=== PATIENT | male | born 1955 | race Caucasian/White ===

== ENCOUNTER 2016-10-26 10:00 | Inpatient (IN) ==
[2016-10-26] MEDS ORDERED: NS 1,000 ML ONE ×3 (10:30→16:38)
[2016-10-26 10:33] LABS: MANUAL DIFF NEEDED? NO
[2016-10-26] MEDS ORDERED: NS 1,000 ML IV ONE ×3 (10:33→11:41)
[2016-10-26 10:36] LABS: BASO% 0.3 % (0.0-0.8); EOS# 0.22 X1000 (0.0-0.7); EOS% 2.3 % (0.0-10.0); HEMATOCRIT 38.4 % (42.0-52.0); HEMOGLOBIN 13.8 g/dL (14.0-18.0); IMM GRAN# 0.05 X1000 (0.0-0.04); IMM GRAN% 0.5 % (0.0-0.5); LYMPH# 1.68 X1000 (1.2-3.4); LYMPH% 17.6 % (20.5-51.1); MCHC 35.9 g/dL (33-37); MCV 91.9 FL (81-99); MONO# 1.33 X1000 (0.11-0.59); MONO% 13.9 % (1.7-9.3); MPV 8.9 FL (7.4-10.4); NEUT% 65.4 % (42.2-75.2); PLT 289 X1000 (130-400); RBC 4.18 XMIL (4.7-6.1)
[2016-10-26 11:10] LABS: SODIUM 120 mmol/L (136-145)
[2016-10-26 11:11] LABS: AGAP 17; ALBUMIN 3.9 g/dL (3.5-5.0); ALKALINE PHOSPHATASE 87 U/L (32-122); AMYLASE 77 U/L (20-200); BUN 14 mg/dL (8-22); CHLORIDE 82 mmol/L (98-107); COSMO 245; GOT 16 U/L (10-34); GPT 9 U/L (10-44); LIPASE 45 U/L (13-60); POTASSIUM 3.7 mmol/L (3.5-5.1); TCO2 21 mmol/L (25-35); TOTAL PROTEIN 6.6 g/dL (6.3-8.3)
[2016-10-26] MEDS ORDERED: TYLENOL PO PRN ×4 (11:41→18:03)
--- NOTE | 2016-10-26 12:08 | Diag Imaging Result Doc PS360 ---
EXAM: FLAT/UPRIGHT ABD/1 VIEW CHEST HISTORY: abd pain TECHNIQUE: Two view abdomen. Single view chest. COMPARISON: 06/19/2016 FINDINGS: Supine and erect views of the abdomen demonstrate numerous markedly dilated small bowel loops. There is linear and bubbly gas appearance within the right abdomen and pneumatosis is not excluded. Further evaluation CT scan of the abdomen and pelvis is suggested. Findings are suspicious for mechanical small bowel obstruction or possibly adynamic ileus. There is a paucity of rectal gas. There is no free air beneath the hemidiaphragm. Single view of the chest reveals cardiomegaly. No acute infiltrates are identified. There are postsurgical changes left shoulder. IMPRESSION: Markedly dilated small bowel loops suspicious for mechanical obstruction or possibly adynamic ileus. Cannot exclude pneumatosis intestinalis right abdomen. Recommend CT scan of the abdomen and pelvis. These findings were discussed with Dr. Davalos. Electronically signed by Junie Chan 10/26/2016 12:06 PM
[2016-10-26] MEDS ORDERED: ZOFRAN ONE (13:07)
[2016-10-26] MEDS ORDERED: ZOFRAN IV ONE (13:10)
--- NOTE | 2016-10-26 15:33 | Diag Imaging Result Doc PS360 ---
EXAM: ABDOMEN/PELVIS W/CONTRAST HISTORY: sbo, pneumatosis TECHNIQUE: Images of the abdomen and pelvis were performed with IV and oral contrast. COMPARISON: None. FINDINGS: The lung bases reveal increased attenuation right lower lobe consistent with atelectasis or consolidation. There is a small to moderate hiatal hernia. There are multiple dilated small bowel loops throughout the abdomen measuring up to 4.7 cm in diameter. The small bowel loops are fluid-filled with multiple gas bubbles but no definitive pneumatosis. The small bowel loops within the upper pelvis appear somewhat decompressed compared to the remaining small bowel loops within the abdomen, however, a definitive transition zone is not appreciated. The colon is fluid filled and mildly dilated proximally. Cecum measures 8 cm. There is a small amount of free fluid within the right lower quadrant adjacent to bowel loops. There is diverticulosis. There is no evidence for diverticulitis. The appendix appears normal. The sigmoid colon is decompressed. The solid visceral organs are otherwise unremarkable with exception of a small right renal cyst. No portal venous gas is appreciated. The urinary bladder is distended. There is no hydronephrosis. The pancreas, spleen, and adrenal glands are unremarkable. There is a nonspecific sclerotic lesion within the right ilium and lumbar spondylosis. Surgical consultation is recommended. These findings were discussed with Dr. Davalos. IMPRESSION: 1.Marked small bowel dilatation measuring up to 4.7 cm. The degree of small bowel distention is suspicious for mechanical small bowel obstruction although adynamic ileus is not completely excluded. Somewhat decompressed small bowel loops are noted within the upper pelvis but no definitive transition point. The sigmoid colon appears decompressed and the remainder of the colon appears mildly dilated. 2.Small amount of interloop fluid right lower quadrant. 3.No definitive pneumatosis although there is fecalization of the small bowel and numerous scattered air foci throughout the colon. 4.Right lower lobe atelectasis or consolidation. 5.Hiatal hernia. 6.Normal appendix. 7.Distended urinary bladder. Electronically signed by Junie Chan 10/26/2016 3:30 PM
[2016-10-26] MEDS ORDERED: MORPHINE IV PRN (15:37)
[2016-10-26 15:51] LABS: URINE CULTURE PL NEEDED? NO
[2016-10-26] MEDS ORDERED: VASOTEC IV ONE (15:53)
[2016-10-26] MEDS ORDERED: VASOTEC ONE (15:54)
[2016-10-26 15:59] LABS: BILIRUBIN URINE NEGATIVE (NEGATIVE); BLOOD URINE NEGATIVE (NEGATIVE); CLARITY CLEAR (CLEAR); COLOR YELLOW; GLUCOSE URINE NEGATIVE (NEGATIVE); LEUKOCYTES URINE NEGATIVE (NEGATIVE); NITRITE URINE NEGATIVE (NEGATIVE); PROTEIN URINE TRACE mg/dL (NEGATIVE); UROBILINOGEN URINE NORMAL
[2016-10-26] MEDS ORDERED: MORPHINE ONE (16:16)
[2016-10-26 16:17] LABS: URINE SOURCE CLEAN CATCH
[2016-10-26 16:19] LABS: URINE EPITHELIAL CELLS <10 /HPF (<10); URINE RBC <10 /HPF (<10); URINE WBC <10 /HPF (<10)
[2016-10-26] MEDS ORDERED: SODIUM CHLORIDE 0.9% INJ ONE (16:37)
[2016-10-26] MEDS ORDERED: PROTONIX IV ONE (16:37)
--- NOTE | 2016-10-26 16:40 | HISTORY AND PHYSICAL ---
PRIMARY CARE PHYSICIAN: Unknown. CHIEF COMPLAINT: Periumbilical abdominal pain that began this a.m. Weakness for the past 4 days. Constipation for 4-5 days and nausea, vomiting x1. HISTORY OF PRESENTING ILLNESS: This is a 61-year-old male who presents to [facility] ER with complaints of periumbilical abdominal pain that began this a.m. States he has had increased weakness and constipation for 4-5 days prior to arriving and nausea, vomiting today. Workup in the ER showed a blood pressure on arrival of 80/43. Laboratory data showed a sodium of 120, chloride 82. X-ray of the abdomen showed a markedly dilated small-bowel loop suspicious for mechanical obstruction, could not be exclude a pneumatosis and recommended a CT scan. We obtained a CT of the abdomen and pelvis that showed marked small- bowel dilation suspicious for mechanical small-bowel obstruction although adynamic ileus was not completely excluded. Also had no definite pneumatosis. He had a right lower lobe atelectasis or consolidation. The ER physician spoke with on-call surgeon, Dr. Moncada who requested the patient be transferred to [facility] to the hospitalist services and consult him for further surgical intervention. So he will be admitted to the intensive care unit at [facility] for further evaluation and treatment. PAST MEDICAL HISTORY: Hypertension, COPD, GERD, a subarachnoid hemorrhage, CVA , seizures, bipolar and PTSD. PAST SURGICAL HISTORY: Tonsillectomy and a ruptured esophagus repair. FAMILY HISTORY: Noncontributory. SOCIAL HISTORY: Currently lives with family. He smokes 1 pack of cigarettes a day and has done so since he was 14 years old. Denies any alcohol or illicit drug use. ALLERGIES: He has no known drug allergies. HOME MEDICATIONS: We will obtain a current list but at this time he will be NPO. Will restart them once his obstruction has resolved and approved by the hospitalist at that time. LABORATORY DATA: Showed a white blood cell count of 9.55, a hemoglobin of 13.8 , hematocrit 38.4, platelets 289,000. Sodium of 120, potassium 3.7, chloride 82, CO2 21, BUN of 14 , creatinine 1.1, glucose 136, amylase 77, lipase 45, plasma lactate 2.5. X-ray of the abdomen showed markedly dilated small-bowel loop suspicious for mechanical obstruction or possibly an adynamic ileus. Cannot exclude pneumatosis intestinalis right abdomen. Recommended a CT of the abdomen and pelvis. CT of the abdomen and pelvis showed marked small-bowel dilation measuring up to 4.7 cm. The degree of small bowel distention is suspicious for mechanical small bowel obstruction although adynamic ileus is not completely excluded, somewhat decompressed small bowel loops are noted within the upper pelvis but no definite transition point. The sigmoid colon appears decompressed and the remainder of the colon appeared mildly dilated. Small amount of interloop fluid in the right lower quadrant. No definite pneumatosis although there is fecalization of the small bowel and numerous scattered air foci throughout the colon. A right lower lobe atelectasis or consolidation, hiatal hernia, normal appendix and a distended urinary bladder. REVIEW OF SYSTEMS: He denied any fever, chills, blurred vision, dizziness, chest pain, coughing, shortness of breath. He is positive for nausea, vomiting, constipation, periumbilical abdominal pain, weakness. Denied any burning or hurting with urination. PHYSICAL EXAMINATION: VITAL SIGNS: On arrival had a temperature of 98 degrees, pulse 57, respirations 20, blood pressure was 80/43. He was given 2 L boluses of normal saline now running at 125 mL an hour and his blood pressure currently is 164/107. GENERAL: This is a 61-year-old male who is lying in the bed, answers questions appropriately. HEENT: Normocephalic and atraumatic. Pupils are equal, round, reactive to light. Extraocular movements are intact. Oropharynx and nares are clear. NECK: Supple. LUNGS: Clear to auscultation bilaterally with equal lung expansion and chest wall movement. HEART: With regular rate and rhythm. No murmurs, rubs, or gallops. ABDOMEN: Soft, distended. Bowel sounds are present x4 quadrants. There is tenderness to palpation throughout entire abdomen. EXTREMITIES: No clubbing, cyanosis, or edema. NEUROLOGICAL: The cranial nerves 2-12 are grossly intact. ASSESSMENT: 1. A mechanical small-bowel obstruction. 2. Hyponatremia. 3. A right lower lobe pneumonia. 4. An initial presentation of hypotension but now with hypertension. PLAN: He is being admitted to the intensive care unit at [facility], [place], operated by [facility]. Placed on O2 per protocol. Telemetry. He will be NPO. Place on morphine 2 mg IV q.[address] on Levaquin 750 mg IV q.24, Zosyn 3.375 g IV Neuro checks q.4 hours. Consult surgery. Check a urine osmolality and urine sodium. Will check a CBC and a CMP in the a.m. Dictated by LASHAY Martinez for Yuriy Reagan MD cc: LASHAY Martinez MD pt examined, agree with above , developed upper GI bleed, placed NGT, started protonix gtt, contacted Dr Moncada and have also consulted Dr Swanson, we will continue to follow closely APENOT MTDD
[2016-10-26] MEDS ORDERED: PROTONIX 80 MG in NS 80 ML IV ONE (16:45)
--- NOTE | 2016-10-26 16:58 | Diag Imaging Result Doc PS360 ---
CHEST/ABD TUBE PLACEMENT - 10/26/2016 INDICATION: NG tube placement confirmation TECHNIQUE: COMPARISON: Earlier 10/26/2016 FINDINGS: There is a nasogastric tube with the tip in the stomach in good position. There is severe small bowel obstruction. IMPRESSION: Nasogastric tube tip in the stomach. Electronically signed by Rodrigo Bruno 10/26/2016 4:56 PM
[2016-10-26] MEDS: PROTONIX 80 MG in NS 80 ML IV ONE (17:00)
[2016-10-26] MEDS ORDERED: ZOSYN 3.375 GM/NS 3.375 GM/50 ML IVPB IV ONE (18:03)
[2016-10-26] MEDS ORDERED: LEVAQUIN 750 MG/D5W 750 MG/150 ML IVPB IV SCH (18:03)
[2016-10-26] MEDS ORDERED: ZOFRAN IV PRN (18:03)
[2016-10-26] MEDS: NS 1,000 ML IV ONE (18:28)
[2016-10-26] MEDS: MORPHINE IV PRN ×2 (18:45→22:48)
[2016-10-26] MEDS: DUONEB (A & A) INH SCH ×2 (19:12→23:28)
[2016-10-26] MEDS ORDERED: DUONEB (A & A) INH SCH (19:30)
[2016-10-26 20:45] LABS: HEMATOCRIT 37.2 % (42.0-52.0); HEMOGLOBIN 13.5 g/dL (14.0-18.0)
[2016-10-26] MEDS ORDERED: ATIVAN IV ONE (22:24)
[2016-10-27] MEDS: NS 1,000 ML IV ONE (01:59)
[2016-10-27] MEDS: NS 1,000 ML IV SCH ×3 (02:00→19:59)
[2016-10-27] MEDS: PROTONIX 80 MG in NS 80 ML IV ONE (02:00)
[2016-10-27] MEDS: PROTONIX 80 MG in NS 80 ML IV SCH ×3 (02:01→23:37)
[2016-10-27] MEDS: DUONEB (A & A) INH SCH ×6 (03:08→23:05)
[2016-10-27 05:01] LABS: MANUAL DIFF NEEDED? NO
[2016-10-27 05:03] LABS: BASO% 0.1 % (0.0-0.8); EOS# 0.12 X1000 (0.0-0.7); EOS% 1.3 % (0.0-10.0); HEMATOCRIT 36.2 % (42.0-52.0); HEMOGLOBIN 12.9 g/dL (14.0-18.0); LYMPH# 0.65 X1000 (1.2-3.4); MCH 33.2 PG (27-31); MCHC 35.6 g/dL (33-37); MCV 93.3 FL (81-99); MONO# 1.74 X1000 (0.11-0.59); MONO% 18.8 % (1.7-9.3); MPV 9.2 FL (7.4-10.4); NEUT% 72.8 % (42.2-75.2); PLT 281 X1000 (130-400); RBC 3.88 XMIL (4.7-6.1)
[2016-10-27 05:42] LABS: AGAP 11; ALBUMIN 3.1 g/dL (3.5-5.0); ALKALINE PHOSPHATASE 68 U/L (32-122); BUN 7 mg/dL (8-22); CALCIUM 8.2 mg/dL (8.8-10.2); CHLORIDE 96 mmol/L (98-107); COSMO 256; GOT 15 U/L (10-34); GPT 9 U/L (10-44); POTASSIUM 3.9 mmol/L (3.5-5.1); SODIUM 129 mmol/L (136-145); TCO2 22 mmol/L (25-35); TOTAL BILIRUBIN 0.47 mg/dL (0.20-1.00); TOTAL PROTEIN 5.3 g/dL (6.3-8.3)
[2016-10-27] MEDS: PRINIVIL PO SCH ×2 (08:51→09:32)
[2016-10-27] MEDS: ZOSYN 3.375 GM/NS 3.375 GM/50 ML IVPB IV SCH ×3 (08:51→19:59)
--- NOTE | 2016-10-27 09:57 | PROGRESS NOTE ---
DATE: 10/27/2016 SUBJECTIVE: Patient has not had any more episodes of vomiting with coffee- ground material. Not feeling dizzy. Now mild intermittent abdominal pain. OBJECTIVE: Vital Signs: Temperature 99.6 degrees, heart rate 94, respiratory rate 12, blood pressure 158/104, O2 saturation 94% on room air. This is a 61-year-old male, lying in bed, in no acute distress. HEENT: Head is normocephalic, atraumatic. Anicteric sclerae and pale conjunctivae. Mucous membranes moist. Pupils equal, round, reactive to light and accommodation. Neck: Supple. No JVD. No carotid bruits. No lymphadenopathy. No thyromegaly. Cardiovascular: S1, S2 heard. No murmurs, gallops, or rubs. Regular rate and rhythm. Respiratory: Clear bilaterally to auscultation. No work of breathing or using accessory muscles. Abdomen: Soft, distended. Bowel sounds hyperactive in both 4 quadrants. Also, generalized tenderness to palpation throughout the entire abdomen. Extremities: No clubbing, cyanosis, or edema. Peripheral pulses present in both legs. Neurological: Patient alert oriented x3. Moves 4 extremities. Cranial nerves 2-12 grossly normal. Very hard of hearing. LABORATORY DATA: White cell count 12.9, hematocrit 36.2 with platelets 281, 000. Sodium 129, potassium 3.9, chloride 96, bicarbonate 22, BUN 0.6, creatinine 0.6 and BUN 7. ASSESSMENT/PLAN: 1. Mechanical small-bowel obstruction. Dr. Moncada from General Surgery has been consulted and he is following this patient. NG tube has been placed. We will follow recommendations from him. 2. Hyponatremia. This condition is getting better. Sodium 120 at admission and 126 today. We will continue with IV fluids. 3. Right lower lobe pneumonia. Considering that she had a small-bowel obstruction and pneumonia, would prefer to change antibiotics and use Zosyn. 4. Hypertension. Lisinopril will be restarted. 5. Gastrointestinal bleeding. Dr. Reddy has been consulted and hemoglobin , so far, is stable. We will follow recommendations from him. cc: Souleymane Jasso MD [facility]
[2016-10-27] MEDS: APRESOLINE IV PRN (11:50)
[2016-10-27] MEDS: MORPHINE IV PRN ×3 (12:29→20:41)
--- NOTE | 2016-10-27 13:24 | CONSULTATION ---
DATE OF CONSULTATION: 10/27/2016 CHIEF COMPLAINT: Obstipation. HISTORY: This is a 61-year-old white male who reports no bowel movement in 4 months. He says he has been evaluated for this by Dr. Juarez, but they have been unable to find the source or the reason. He says he has continued to eat satisfactorily, but his bowels simply do not move. He was admitted and CAT scan showed dilated small bowel, stool within the colon. PAST MEDICAL HISTORY: Pertinent for hypertension, COPD, gastroesophageal reflux, history of subarachnoid hemorrhage, apparently a seizure disorder, and bipolar disorder. PAST SURGICAL HISTORY: Tonsillectomy. FAMILY HISTORY: Noncontributory. SOCIAL HISTORY: He does smoke a pack of cigarettes per day. Says he is not drunk any alcohol in 7 months. ALLERGIES: He has no known drug allergies. HOME MEDICATIONS: Are not listed, but I believe he takes Vasotec 2.5 mg and Ativan. PHYSICAL EXAMINATION: Vital Signs: His temperature is 99.6 degrees, heart rate 94, blood pressure 158/100. General: He is awake and alert. Says he feels much better today than he did yesterday. Neck: He has no cervical adenopathy. Lungs: Bilateral breath sounds. Heart: Regular rate and rhythm. Abdomen: Soft and nontender. No masses are palpated. Bowel sounds are present. Extremities: Femoral pulses are present. Dorsalis pedis and posterior tibial pulses are normal. No peripheral edema. Neurologic: He is awake and alert. LABORATORIES: White count is 9300, hemoglobin 12.9. Sodium 129 and chloride 96. ASSESSMENT: This man has apparently a paralytic ileus for uncertain reasons. He certainly has stool in his colon, which could contribute to his obstipation. There is no urgent indication for operation. I do think he should be evaluated more fully with evacuation of his colon and possible colonoscopy. We will continue the NG suction. cc: Boris Moncada MD
[2016-10-27] MEDS ORDERED: TESSALON PO PRN (20:21)
[2016-10-27] MEDS ORDERED: MELATONIN PO PRN (22:42)
[2016-10-27] MEDS ORDERED: BENADRYL IV ONE (22:49)
[2016-10-28] MEDS: ZOSYN 3.375 GM/NS 3.375 GM/50 ML IVPB IV SCH ×4 (01:16→21:48)
[2016-10-28] MEDS: MORPHINE IV PRN ×2 (03:07→10:09)
[2016-10-28] MEDS: DUONEB (A & A) INH SCH ×6 (03:15→23:09)
[2016-10-28] MEDS: NS 1,000 ML IV SCH ×3 (04:22→17:15)
[2016-10-28 05:37] LABS: MANUAL DIFF NEEDED? NO
[2016-10-28 05:44] LABS: BASO% 0.2 % (0.0-0.8); EOS# 0.04 X1000 (0.0-0.7); EOS% 0.5 % (0.0-10.0); HEMATOCRIT 36.9 % (42.0-52.0); IMM GRAN# 0.02 X1000 (0.0-0.04); IMM GRAN% 0.2 % (0.0-0.5); LYMPH# 1.19 X1000 (1.2-3.4); LYMPH% 14.7 % (20.5-51.1); MCH 33.1 PG (27-31); MCHC 35.2 g/dL (33-37); MCV 93.9 FL (81-99); MONO# 1.34 X1000 (0.11-0.59); MONO% 16.5 % (1.7-9.3); MPV 9.3 FL (7.4-10.4); NEUT% 67.9 % (42.2-75.2); PLT 268 X1000 (130-400); RBC 3.93 XMIL (4.7-6.1)
[2016-10-28 06:02] LABS: AGAP 15; BUN 4 mg/dL (8-22); CHLORIDE 97 mmol/L (98-107); COSMO 263; SODIUM 132 mmol/L (136-145); TCO2 20 mmol/L (25-35)
[2016-10-28] MEDS: APRESOLINE IV PRN (06:07)
[2016-10-28] MEDS: PROTONIX 80 MG in NS 80 ML IV SCH ×2 (08:58→17:14)
[2016-10-28] MEDS ORDERED: SEROQUEL PO SCH (09:00)
[2016-10-28] MEDS ORDERED: DEPAKOTE ER PO SCH (09:00)
[2016-10-28] MEDS: METAMUCIL PO SCH ×2 (10:03)
[2016-10-28] MEDS: SINGULAIR PO SCH (10:03)
[2016-10-28] MEDS: PRINZIDE 10/12.5MG PO SCH ×2 (10:03→21:50)
[2016-10-28] MEDS: NORVASC PO SCH ×2 (10:03→21:51)
[2016-10-28] MEDS: NEURONTIN PO SCH ×3 (10:03→17:14)
[2016-10-28] MEDS: MIRALAX PO SCH (10:03)
--- NOTE | 2016-10-28 11:32 | PROGRESS NOTE ---
DATE: 10/28/2016 SUBJECTIVE: Patient reports no more episodes of coffee-grounds vomiting. No blood in the stools. No abdominal pain noted today. OBJECTIVE: Vital Signs: Temperature 99.6 degrees, heart rate 75, respiratory rate 18, blood pressure 163/97, O2 saturation 96% on room air. General Examination: This is a chronically ill- looking and also looking older than his age, 61-year-old, male, lying in bed, in no acute distress. HEENT: Head is normocephalic and atraumatic. Anicteric sclerae and pale conjunctivae. Mucous membranes moist. Pupils equal, round, and reactive to light and accommodation. Neck: Supple. No JVD noted. No carotid bruits. No lymphadenopathy. No thyromegaly. Cardiovascular Examination: S1 and S2 heard. No murmurs, gallops, or rubs. Regular rate and rhythm. Respiratory Examination: Clear bilaterally to auscultation. No work of breathing or using accessory muscles. Abdomen: Soft, nontender to palpation. Bowel sounds present. No organomegaly. Extremities: No clubbing, cyanosis, or edema. Peripheral pulses present in both legs. Abdomen is distended, same in comparing with yesterday. Tympanic. No signs of peritoneal irritation. Bowel sounds hyperactive in 4 quadrants. Mild tenderness to palpation around the entire abdomen. Extremities: No clubbing, cyanosis, or edema. Peripheral pulses present in both legs. Neurological Examination: Patient is a little hard of hearing. Moves 4 extremities. Cranial nerves 2 though 12 grossly normal. Laboratory Data: White cell count is 8.11, hemoglobin 13, hematocrit 36.9, and platelets 268,000. Sodium 132, potassium 4, chloride 97, bicarb 20, BUN 4, creatinine 0.6, glucose 128. ASSESSMENT AND PLAN: 1. Possible mechanical small-bowel obstruction. We have consulted Dr. Moncada from general surgery who thinks this patient had apparently a paralytic ileus for uncertain reasons. There is definitely no surgical approach warranted at this time. Also, Dr. Reddy has been consulted and he recommends laxatives. 2. Gastrointestinal bleeding. Regarding this possible vomiting coffee-grounds material, hemoglobin has been stable so far until now. Dr. Reddy is planning to continue with laxatives and apparently, there are no plans for doing a colonoscopy yet. There is no note in the computer. 3. Hyponatremia. That condition is much better. The patient is responding and today is 132, almost back to normal. We will continue with intravenous fluids. 4. Hypertension. Patient's home medication has been restarted. 5. Right lower lobe pneumonia. Patient is on Zosyn. We will continue with the same management. Patient was admitted to the hospital for a small bowel obstruction. CT also shows right lower lobe pneumonia. By now, he is being treated for pneumonia. Surgery is not planning to do any surgical approach and GI is providing medications for constipation. I am not quite sure if they are planning to do a colonoscopy but by now the patient is stable. The patient can be sent to the floor today. We will follow recommendations from both subspecialists and we will let him go home when he is cleared by them. cc: Souleymane Jasso MD
--- NOTE | 2016-10-28 12:14 | Diag Imaging Result Doc PS360 ---
EXAM: FLAT/UPRIGHT ABD/1 VIEW CHEST HISTORY: abd distention TECHNIQUE: Flat and upright with chest, four views COMPARISON: 10/26/2016 FINDINGS: The lungs are well expanded and clear. No cardiomegaly. A nasogastric tube overlies the esophagus and upper stomach. No free air beneath the diaphragm. There is stool throughout the colon. The small bowel loops are less distended than on the prior study. IMPRESSION: Interval decrease in the small bowel distention, but constipation patient persists. Electronically signed by Shabbir Fair 10/28/2016 12:12 PM
[2016-10-28] MEDS: SEROQUEL PO SCH ×2 (13:59→17:13)
[2016-10-28] MEDS: DEPAKOTE ER PO SCH (21:50)
[2016-10-28] MEDS: AMBIEN PO SCH (21:50)
[2016-10-28] MEDS: DESYREL PO SCH (21:50)
[2016-10-29] MEDS: NS 1,000 ML IV SCH ×4 (00:57→23:16)
[2016-10-29] MEDS: ZOSYN 3.375 GM/NS 3.375 GM/50 ML IVPB IV SCH ×4 (02:59→21:21)
[2016-10-29] MEDS: DUONEB (A & A) INH SCH ×6 (03:33→23:07)
[2016-10-29] MEDS: PROTONIX 80 MG in NS 80 ML IV SCH ×2 (03:56→13:52)
[2016-10-29] MEDS: MIRALAX PO SCH (09:22)
[2016-10-29] MEDS: SEROQUEL PO SCH ×3 (09:22→17:47)
[2016-10-29] MEDS: METAMUCIL PO SCH ×2 (09:22)
[2016-10-29] MEDS: SINGULAIR PO SCH (09:23)
[2016-10-29] MEDS: NORVASC PO SCH ×2 (09:23→21:33)
[2016-10-29] MEDS: NEURONTIN PO SCH ×3 (09:23→17:48)
[2016-10-29] MEDS: PRINZIDE 10/12.5MG PO SCH ×2 (09:23→21:21)
--- NOTE | 2016-10-29 09:59 | PROGRESS NOTE ---
DATE: 10/29/2016 SUBJECTIVE: Mr. Hobson is now hospital day 4. He is hearing impaired. He was admitted to our hospitalist with possible small bowel obstruction with dilatation of the small bowel. NG tube has been placed. Dr. Moncada saw him on 10/27/2016, and it was felt that he had an ileus. He has been treated conservatively. He has no NG tube at this time. He has had some flatus and a small bowel movement with improvement in his flat and upright abdominal films. There is an issue with constipation and GI medicine has seen the patient and has prescribes laxatives. There may be plans for colonoscopy. He has been placed on a clear liquid diet. cc: Donna Butler MD
--- NOTE | 2016-10-29 12:56 | CONSULTATION ---
DATE OF CONSULTATION: 10/27/2016 CHIEF COMPLAINT: Nausea, vomiting, and periumbilical abdominal pain. HISTORY OF PRESENT ILLNESS: This 61-year-old gentleman, with periumbilical pain for the last 4-5 days, increasing constipation associated with nausea and vomiting, came in with hypotension and hyponatremia. CT scan: Small bowel dilation and stool throughout the colon. The patient was placed on NG tube and surgical consult was asked, and I was asked to see the patient. PAST MEDICAL HISTORY: Hypertension, COPD, GERD, subarachnoid hemorrhage, CVA, seizures, bipolar, and PATS. PAST SURGICAL HISTORY: Tonsillectomy and ruptured esophagus repair. FAMILY HISTORY: Noncontributory. SOCIAL HISTORY: He lives with his . He smokes a pack of cigarettes a day. He does not drink or use any drugs. ALLERGIES: None. HOME MEDICATIONS: He is not sure about his medicines. We are waiting for the family to bring the medication. REVIEW OF SYSTEMS: He denies any fever or chills or any hematemesis, melena, hematochezia. No other symptoms other than feeling weak. PHYSICAL EXAMINATION: Physical examination reveals this pleasant gentleman alert, appears to be gagging when I saw him. He is afebrile, temperature of 98 degrees. Pulse 70, respirations 20, blood pressure by the time I have seen is 110/80. General: A 61-year-old gentleman laying in bed, answers questions. Uncomfortable with the NG tube. HEENT: No scleral icterus. Mild conjunctival pallor present. Neck is supple. Trachea midline. Heart normal. 1st and 3rd sounds. Lungs are clear. Abdomen distended. No rebound or rigidity. Tympanic bowel sounds are present. Extremities: No cyanosis or clubbing. Neurologically intact. LABORATORY DATA: White count 9000, hematocrit 38.2. Sodium is low at 120. Chloride is also low at 82. CO2 of 21. Creatinine 1.1. CT scan findings as above. Marked dilation of the bowel and fecalization of the small bowel as well. ASSESSMENT AND PLAN: 1. Severe constipation and rule out mechanical small bowel obstruction. 2. Hyponatremia secondary to dehydration and nausea and vomiting. 3. Hypotension secondary to dehydration. 4. Chronic constipation. RECOMMENDATIONS: We will continue NG suction abdominal distention is better. We will try some MiraLAX and try to get his bowels moving. If that does not work, we will plan on upper GI endoscopy and possibly flexible sigmoidoscopy as well. cc: Morales Reddy MD
--- NOTE | 2016-10-29 12:57 | CONSULTATION ---
DATE OF CONSULTATION: 10/28/2016 SUBJECTIVE: The patient is looking better. He had a total of about 1200 mL aspirated in NG. The patient is tolerating clear liquids and has tube in clamp from yesterday No episodes of any vomiting coffee grounds or otherwise. OBJECTIVE: Temperature of 99 degrees, heart rate 75, respirations 18, blood pressure 160/90, O2 saturation 96% on room air. General: Resting in bed in no acute distress. HEENT: Mild conjunctival present. Pallor present. Mucosa is moist now. The heart and lungs are normal. Abdomen is slightly less distended but still tympanitic. Bowel sounds are present and hyperactive. Extremities unremarkable. No edema or clubbing. Neurologically intact. LABORATORY DATA: H and H have dropped slightly due to rehydration probably. Hematocrit 36.9, sodium up to 132, potassium up to 4. Creatinine down to 0.6. IMPRESSION AND PLAN: 1. Dilation of the small bowel and chronic constipation, mechanical versus ileus. Sodium has improved. He is actually looking better and tolerating liquids. I will try to prep him if he tolerates it. If not, we will have to do an enema and do an upper and a flexible sigmoidoscopy. 2. Gastrointestinal bleeding. No evidence of it now. 3. Hypernatremia. 4. Questionable right lower lobe pneumonia. I will try to get him cleaned out, but it appears that it may be risky with massive dilation of small bowel. We will decide tomorrow. -5 cc: Morales Reddy MD
--- NOTE | 2016-10-29 12:57 | CONSULTATION ---
DATE OF CONSULTATION: 10/29/2016 SUBJECTIVE: Feeling better. He had a small bowel movement. Tolerating liquids. No further nausea and vomiting. OBJECTIVE: Vital signs are noted and stable. HEENT: No scleral icterus. No conjunctival pallor. Neck supple. Trachea midline. Heart: Normal first and second heart sounds. Lungs are clear. Abdomen: Nontender. Still distended and tympanitic. Bowel sounds are present and hyperactive. Extremities unremarkable. LABORATORY DATA: Normal. IMPRESSION: 1. Ileus versus mechanical small bowel obstruction. We will possibly do upper gastrointestinal endoscopy and even enteroscopy and suction some of this gaseous distention. 2. Chronic constipation. I do not think we will be able to get him prepped from upper; we will try enemas and do at least flexible sigmoidoscopy and see if they dislodge any impaction. 3. Hypernatremia, corrected. 4. Gastrointestinal bleed, not active. 5. Hypertension being corrected. We will see him tomorrow with procedure. -5 cc: Morales Reddy MD
--- NOTE | 2016-10-29 13:37 | PROGRESS NOTE ---
DATE: 10/29/2016 SUBJECTIVE: The patient was seen and examined. He wants to eat. He stated he is hungry. No bowel movement. No acute events reported by the overnight staff. OBJECTIVE: Vital Signs: Blood pressure 131/104, pulse of 84, respirations 20, temperature 97.7 degrees, saturation of 96% on room air. General Appearance: Obese, white male, deaf, in no acute distress. HEENT: Anicteric. Clear conjunctivae. Neck: Supple. No JVD. No bruit. Cardiovascular: S1, S2. Normal rate and rhythm. No murmurs, rubs, or gallops. Pulmonary: Clear to auscultation bilaterally. GI: Soft, nontender, nondistended. Normoactive bowel sounds. Musculoskeletal: No clubbing, cyanosis, or edema. LABORATORY: White count 8.11, hemoglobin 13.0, hematocrit of 36.9, platelets of 268,000. Chemistry: Sodium 132, potassium of 9.7, chloride 20, BUN of 4, creatinine 0.6, glucose 128. Liver function tests are within normal limits. ASSESSMENT AND PLAN: This is a 61-year-old white male admitted to the hospital for shortness of breath and hyponatremia. 1. Shortness of breath. It is improving. Continue nebulizer treatments. More probable viral URI. 2. Hyponatremia. Probably secondary to his diuretics. The patient is on hydrochlorothiazide. Since his sodium function is improving we will not stop his hydrochlorothiazide but it may be something that we need to look into further if he continues to have hyponatremia. 3. Severe constipation. The patient has bowel sounds. No nausea. No vomiting. I see no reason to suspect that the patient has a mechanical small bowel obstruction. His abdominal x-ray showed just decreasing small bowel distention and constipation still persists. 4. Questionable upper gastrointestinal bleed. The patient attributes it to his nosebleed and his swallow. GI is planning to do the endoscopy tomorrow. We will continue to watch the patient. Hemoglobin and hematocrit have been stable. 5. Deep vein thrombosis prophylaxis. SCD for now, concern for possible GI bleed. 6. Code status. The patient is a full code. 7. Diet. We will start the patient on soft diet today and NPO after midnight since the patient only has an EGD tomorrow.
[2016-10-29] MEDS: AMBIEN PO SCH (21:20)
[2016-10-29] MEDS: DEPAKOTE ER PO SCH (21:20)
[2016-10-29] MEDS: DESYREL PO SCH (21:21)
[2016-10-30] MEDS: ZOSYN 3.375 GM/NS 3.375 GM/50 ML IVPB IV SCH ×4 (02:28→20:45)
[2016-10-30] MEDS: NS 1,000 ML IV SCH ×2 (03:04→17:26)
[2016-10-30] MEDS: MORPHINE IV PRN (03:13)
[2016-10-30] MEDS: DUONEB (A & A) INH SCH ×6 (03:41→22:51)
[2016-10-30] MEDS ORDERED: PREDNISONE PO ONE (09:58)
[2016-10-30] MEDS: SEROQUEL PO SCH ×3 (10:07→17:26)
[2016-10-30] MEDS: NORVASC PO SCH ×2 (10:07→21:17)
[2016-10-30] MEDS: SINGULAIR PO SCH (10:07)
[2016-10-30] MEDS: LOPRESSOR PO SCH ×2 (10:07→21:17)
[2016-10-30] MEDS: PRINZIDE 10/12.5MG PO SCH ×2 (10:08→21:28)
[2016-10-30] MEDS: MIRALAX PO SCH (10:08)
[2016-10-30] MEDS: METAMUCIL PO SCH ×2 (10:08)
[2016-10-30] MEDS: NEURONTIN PO SCH ×3 (10:08→17:26)
--- NOTE | 2016-10-30 10:31 | PROGRESS NOTE ---
DATE: 10/30/2016 SUBJECTIVE: The patient is doing well, pleasant. Did not have any fever or chills. He is anticipating the EGD and flexible sigmoidoscopy today. OBJECTIVE: Vital signs: Blood pressure 182/98, pulse of 74, respiration 18, temperature 97.8 degrees, saturation of 98% on room air. General appearance: Well-developed, well-nourished white male, in no acute distress. HEENT: Anicteric. Clear conjunctivae. Neck: Supple. No JVD. No bruit. Cardiovascular: S1, S2. Normal rate and rhythm. No murmurs, rubs, or gallops. Pulmonary: Wheezes bilaterally. GI: Soft, nontender, nondistended. Normoactive bowel sounds. Musculoskeletal: No clubbing, cyanosis, or edema. LABORATORY: None was ordered for today. We will order for tomorrow. ASSESSMENT AND PLAN: This is a 61-year-old admitted to the hospital for questionable upper gastrointestinal bleed and constipation. 1. Upper gastrointestinal bleed. The patient is going to go for the endoscopy today. He is NPO. Hopefully that will be done this morning. If is all well he can go home later today or tomorrow. 2. Constipation. The patient will have a flexible sigmoidoscopy. He has chronic constipation at home and requires enemas frequently. 3. Hypertension. Blood pressure is elevated. We added Lopressor today. We will keep him on his Norvasc and Zestoretic for now. We will readjust it again tomorrow. 4. Chronic obstructive pulmonary disease exacerbation. We added prednisone and put the patient on nebulizer treatment. We will cut down his IV fluids. 5. History of seizure disorder. Will continue Depakote 1000 mg at bedtime. 6. Code status. The patient is a full code.
[2016-10-30] MEDS ORDERED: FENTANYL ONE (14:33)
[2016-10-30] MEDS ORDERED: DIPRIVAN 1% 500 MG/50 ML BOTTLE ONE (14:33)
--- NOTE | 2016-10-30 15:23 | OPERATIVE NOTE ---
PROCEDURE DATE: 10/30/2016 PROCEDURE: Colonoscopy and esophagogastroduodenoscopy. PREOPERATIVE DIAGNOSES: 1. Obstipation. 2. Small bowel dilation. 3. Nausea. 4. Vomiting. POSTOPERATIVE DIAGNOSIS: 1. Normal esophagogastroduodenoscopy. 2. Dilated colon but very small amount of stool. DESCRIPTION OF PROCEDURE: After informed consent and adequate intravenous sedation, the scope was introduced into the esophagus, stomach, and duodenum. The small bowel as far as I could go into the third portion and fourth portion were not dilated. Aspiration only revealed a small amount of bile. The scope was withdrawn. At this point, a digital rectal exam was performed, the scope introduced all the way into the cecum. No obstruction in the right colon. The colon is dilated which is usually seen in chronically constipated people. However, there is no large amount of stool. I think that MiraLAX is finally working. The scope was withdrawn. The patient tolerated the procedure and was transported back to the recovery area in satisfactory condition. cc: Morales Reddy MD
[2016-10-30] MEDS ORDERED: MIRALAX PO SCH (21:00)
[2016-10-30] MEDS: DEPAKOTE ER PO SCH (21:17)
[2016-10-30] MEDS: AMBIEN PO SCH (22:39)
[2016-10-30] MEDS: DESYREL PO SCH (22:39)
[2016-10-31] MEDS: ZOSYN 3.375 GM/NS 3.375 GM/50 ML IVPB IV SCH ×2 (02:02→09:27)
[2016-10-31] MEDS: DUONEB (A & A) INH SCH ×3 (03:22→11:11)
[2016-10-31] MEDS: NS 1,000 ML IV SCH (04:51)
[2016-10-31 07:40] LABS: AGAP 22; BUN 5 mg/dL (8-22); CALCIUM 9.4 mg/dL (8.8-10.2); CHLORIDE 92 mmol/L (98-107); COSMO 259; POTASSIUM 4.2 mmol/L (3.5-5.1); SODIUM 131 mmol/L (136-145); TCO2 17 mmol/L (25-35)
[2016-10-31 08:41] VITALS: BP 126/95
[2016-10-31 08:44] LABS: MANUAL DIFF NEEDED? NO
[2016-10-31 08:45] LABS: BASO% 0.5 % (0.0-0.8); EOS# 0.18 X1000 (0.0-0.7); EOS% 2.1 % (0.0-10.0); HEMATOCRIT 39.1 % (42.0-52.0); HEMOGLOBIN 13.6 g/dL (14.0-18.0); IMM GRAN# 0.02 X1000 (0.0-0.04); IMM GRAN% 0.2 % (0.0-0.5); LYMPH# 2.36 X1000 (1.2-3.4); LYMPH% 28.1 % (20.5-51.1); MCH 32.5 PG (27-31); MCHC 34.8 g/dL (33-37); MCV 93.5 FL (81-99); MONO# 1.17 X1000 (0.11-0.59); MONO% 13.9 % (1.7-9.3); MPV 8.6 FL (7.4-10.4); NEUT% 55.2 % (42.2-75.2); PLT 358 X1000 (130-400); RBC 4.18 XMIL (4.7-6.1)
[2016-10-31] MEDS ORDERED: PREDNISONE PO SCH (09:00)
[2016-10-31] MEDS: PRINZIDE 10/12.5MG PO SCH (09:27)
[2016-10-31] MEDS: METAMUCIL PO SCH ×2 (09:29)
[2016-10-31] MEDS: NORVASC PO SCH (09:29)
[2016-10-31] MEDS: SEROQUEL PO SCH (09:29)
[2016-10-31] MEDS: LOPRESSOR PO SCH (09:29)
[2016-10-31] MEDS: NEURONTIN PO SCH (09:29)
[2016-10-31] MEDS: MIRALAX PO SCH (09:30)
[2016-10-31] MEDS: SINGULAIR PO SCH (09:34)
--- NOTE | 2016-10-31 12:30 | DISCHARGE SUMMARY ---
ADMISSION DATE: 10/26/2016 DISCHARGE DATE: 10/31/2016 CONSULTATIONS: 1. Dr. Reddy, with Gastroenterology. 2. Dr. Boris Moncada, with general surgery. PERTINENT PROCEDURES: 1. Abdomen pelvis CT showed small bowel dilatation measuring up to 4.7 cm, degree of small bowel distention suspicious for mechanical small bowel obstruction although of adynamic ileus cannot be completely excluded. Somewhat compressed small bowel loops are noted in the upper pelvis but no definite transition point. Sigmoid colon appeared to be decompressed. The remainder of the colon appears mildly dilated. Hiatal hernia. Distended urinary bladder. 2. Colonoscopy and EGD, performed by Dr. Reddy. DISCHARGE DIAGNOSES: 1. Upper GI bleed status post EGD that was normal. Hemoglobin and hematocrit stable. Hemodynamically stable. 2. Constipation the patient underwent a colonoscopy with Dr. Reddy that showed no obstruction in the right colon. The colon was dilated which is usually seen in chronically constipated people however there was no large amount of stool. MiraLAX had been given with good results. Resolved. 3. Hypertension uncontrolled. Will continue on home medications and added Lopressor while in the hospital. 4. Chronic obstructive pulmonary disease exacerbation. Added prednisone and nebulizer treatments. 5. Seizure disorder. Continue the patient's home Depakote. 6. Mechanical small bowel obstruction ruled out. The patient was status post NG tube. HOSPITAL COURSE: Mr. Hobson is a 61-year-old male who a history of hypertension , COPD, GERD, subarachnoid hemorrhage, CVA, seizures, bipolar and PTSD. Patient reported to [facility] with complaints of periumbilical abdominal pain. This started on the morning of admission. States that he had increased weakness and constipation 4-5 days prior to having nausea and vomiting. Workup in the ED revealed a blood pressure of 80/43, lab data showed a sodium of 120, chloride of 82. X-ray of the abdomen showed markedly dilated small bowel loops suspicious for mechanical obstruction. Could not exclude pneumonitis and recommended a CT scan. CT of the abdomen showed marked small-bowel dilatation suspicious for mechanical small bowel obstruction. Adynamic ileus is not completely excluded but no pneumatosis. Dr. Moncada requested that the patient be transferred to [facility] with a hospitalist consult. He was admitted to the ICU at [facility]. An NG tube was placed. He was made NPO, given antiemetics as well as pain medicine and placed on Levaquin and Zosyn initially. The patient was passing flatulence. He did have a small bowel movement and improvement on his flat and upright abdominal film. His NG tube was discontinued. GI was consulted. The patient underwent an EGD and colonoscopy. His EGD was completely normal. However there was no obstruction in the right colon. His colon was dilated which is usually seen in chronically constipated people however no large amount of stool. He had good results with his MiraLAX. The patient has remained hemodynamically stable. His hemoglobin and hematocrit have remained stable. GI bleed was ruled out. His hyponatremia improved with IV fluids. The patient is being discharged back home today. VITAL SIGNS: Temperature is 97.4 degrees, heart rate 77, respirations 20, blood pressure 126/95, O2 is 99% on room air. DISCHARGE MEDICATIONS: As per Dr. Davon Coronado: 1. Norvasc 10 mg p.o. daily. 2. Depakote 500 mg tablets ER 2 tabs p.o. at bedtime. 3. Gabapentin 600 mg p.o. t.i.d. 4. Deconex DMX tablet 1 each p.o. t.i.d. 5. Lisinopril/hydrochlorothiazide 1 each p.o. b.i.d. 6. Lopressor 25 mg p.o. b.i.d. 7. Singular 5 mg p.o. daily. 8. Daily fiber 0.52 g p.o. daily. 9. Seroquel 300 mg p.o. t.i.d. 10. Ultracet 37.5/325 mg 1 tab p.o. daily. 11. Trazodone 150 mg p.o. at bedtime. 12. Ambien 10 mg p.o. at bedtime. DISPOSITION: Mr. Hobson is being discharged home. FOLLOWUP: He will need to find a primary care physician who is accepting new patients and follow up with him in 7-10 days as well as follow up with Dr. Reddy. The patient can return to the ED for any worsening of symptoms. TIME SPENT AT DISCHARGE: Thirty minutes. Dictated by LASHAY Fernandez for Miguel Angel Mays MD Addendum: I personally evaluated and examined the patient in conjunction to the ROTO MIXER OPERATOR and agreed with his assessments and disposition MTDD
--- NOTE | 2016-11-22 02:09 | PROVIDER DOCUMENTATION ---
This chart was entered by Emma Henning Scribe, acting as scribe for Binu Davalos MD. HPI-Abdominal Pain/GI Problem - General Chief Complaint: B/P Problems Stated Complaint: abd Time Seen by Provider: 10/26/16 10:20 Source: patient Allergies/Adverse Reactions: Patient Allergies Allergy/AdvReac Type Severity Reaction Status Date / Time No Known Allergies Allergy Verified 07/03/16 18:31 Home Medications: Home Medication List Medication Instructions Recorded Confirmed Last Taken Type Trazodone HCl 150 mg PO QHS 08/05/14 10/27/16 10/25/16 History Zolpidem [Ambien] 10 mg PO HS 03/23/15 10/27/16 10/25/16 History Divalproex Sodium [Divalproex 2 tab PO HS 04/15/15 10/28/16 10/25/16 History Sodium ER] Gabapentin 600 mg PO TID 04/14/16 10/27/16 10/25/16 History Guaifen/Dextromethorphan/PE 1 each PO TID #30 tablet 04/14/16 07/03/16 Unknown Rx [Deconex Dmx Tablet] Montelukast Chew [Singulair] 5 mg PO DAILY #30 tablet 04/14/16 10/27/16 Rx Psyllium Husk [Daily Fiber] 0.52 gm PO DAILY 04/14/16 10/27/16 10/25/16 History Quetiapine [Seroquel] 300 mg PO TID 04/14/16 10/27/16 10/25/16 History Tramadol/APAP [Ultracet 1 tab PO DAILY 04/14/16 10/27/16 10/25/16 History 37.5MG/325Mg] Lisinopril/Hydrochlorothiazide 1 each PO BID 10/27/16 10/27/16 10/25/16 History [Lisinopril-Hctz 20-25 mg Tab] Amlodipine [Norvasc] 10 mg PO DAILY #30 tablet 10/31/16 Unknown Rx Metoprolol [Lopressor] 25 mg PO BID #60 tablet 10/31/16 Unknown Rx - History of Present Illness-ABD Nature of Presenting Problems: Pt is 61 y/o M presents to the ED with abdominal pain. Pt states pain started this am. Pt states weakness for 4 days. Pt states constipation and N Abdominal Pain Onset Location: reports: periumbilical Pain Radiation: reports: no radiation Quality of Pain: reports: aching Severity in ED: reports: moderate Onset/Duration: reports: this morning Timing: reports: still present Activities at Onset: reports: light activity Exposure to sick contacts?: No Modifying Factors: improves with: nothing Associated Symptoms: reports: constipation, nausea, weakness, trouble walking. denies: anxiety, arm pain, back/neck pain, chest pain, cough, diaphoresis, diarrhea, dizziness, EENT symptoms, fatigue, fever/chills, genitourinary problems, headaches, heartburn, joint pain, loss of appetite, malaise, muscle aches, sinus congestion/drainage, rash, seizure, shortness of breath, sensory/ motor loss, pain with inspiration, swelling/mass in abdomen, syncope, vomiting Last BM: 4 days ago Dark Stools Present?: reports: none noticed Rectal Bleeding: reports: none Rectal Pain: reports: none Emesis Description: reports: none Bruising or Bleeding Gums?: No Similar Symptoms Previously?: Yes Recently seen or treated by another doctor?: No Review of Systems - Adult - REVIEW OF SYSTEMS - ADULT Constitutional: reports: no symptoms reported Eyes: reports: no symptoms reported Ears, Nose, Mouth & Throat: reports: no symptoms reported Cardiovascular: reports: irregular heart rate (sully). denies: chest pain, heart murmur Respiratory: reports: no symptoms reported Gastrointestinal: reports: abdominal pain (periumbilical), constipation, nausea . denies: diarrhea, vomiting Genitourinary: reports: no symptoms reported Musculoskeletal: reports: no symptoms reported Integumentary: reports: no symptoms reported Neurological: reports: no symptoms reported Psychiatric: reports: no symptoms reported Endocrine: reports: no symptoms reported Hematologic/Lymphatic: reports: no symptoms reported Allergic/Immunologic: reports: no symptoms reported All Other Systems: Reviewed and Negative Past History - Adult - PAST MEDICAL HISTORY-ADULT Review of Records: reports: Nursing Assessment Review, Medications Reviewed, Social history reviewed & non-contributory. Major Childhood Illnesses: reports: denies history Cardiovascular: reports: HTN Respiratory: reports: COPD Gastrointestinal: reports: GERD Obstetrical/Gynecological: reports: denies history Genitourinary: reports: denies history Musculoskeletal: reports: denies history Neurological: reports: CVA, Seizures/Epilepsy Psychiatric: reports: anxiety, bipolar, depression, psychiatric problems ( explosive personality disorder), ptsd, other (alcoholic) Endocrine/Immune: reports: denies history, Diabetes Other Conditions: reports: denies history - PRIOR SURGERIES/PROCEDURES Surgical/Procedure History: reports: tonsillectomy, other (ruptured esophagus) - PRIOR HOSPITALIZATIONS Prior Hospitalizations: reports: none - IMMUNIZATION STATUS Childhood Immunizations: See Nurse Assessment Flu Vaccine: See Nurse Assessment - FAMILY HISTORY Family History: reviewed, not pertinent - SOCIAL HISTORY Smoking: cigarettes, less than 1 pack/day Provider spent 3-5 mins advising pt. on dangers of tobacco.: Discussed manners to quit use, and f/u contacts for add'l counseling. Substance Use: none presently/history of abuse (history of abuse), alcohol Living Situation: family Physical Exam-General - PHYSICAL EXAM-ADULT Initial Vital Signs Reviewed: Yes - CONSTITUTIONAL General Appearance: appears well, alert, mild distress - EYES Eyes: PERRL/EOMI, pink conjunctivae - HEAD, EARS, NOSE, MOUTH & THROAT HENMT: normocephalic/atraumatic, moist mucous membranes, normal ENT inspection - NECK Neck: non-tender, full range of motion, supple, normal inspection - RESPIRATORY Respiratory: chest non-tender, lungs clear, normal breath sounds - CARDIOVASCULAR Cardiovascular: normal peripheral pulses, regular rate, rhythm - GASTROINTESTINAL (ABDOMEN) Abdominal Exam: normal bowel sounds, non tender, soft - LYMPHATIC Lymphatic: no adenopathy - MUSCULOSKELETAL Back Exam: normal inspection, no CVA tenderness, no vertebral tenderness Extremity: normal range of motion, non-tender, normal inspection - SKIN Integumentary: normal color, normal turgor, warm/dry - NEUROLOGIC Neurologic: grossly normal - PSYCHIATRIC Psych/Mental Status: normal mood/affect, oriented x 3 Progress - PLAN OF CARE/RESULTS Progress/Plan/Lab Results: Vital Signs - 8 hr 10/26/16 10:05 10/26/16 10:16 Temperature 98 F Pulse Rate 57 L 59 L Respiratory Rate 20 18 Blood Pressure 80/43 O2 Sat by Pulse Oximetry 92 L Orders Category Date Time Status Saline Loc DIRECTED Care 10/26/16 10:15 Active NPO Diet 10/26/16 10:15 Active FLAT/UPRIGHT ABD/1 VIEW CHEST [RAD] Stat Exams 10/26/16 10:16 Ordered AMYLASE [CHEM] Stat Lab 10/26/16 10:15 Ordered CBC WITH ELECTRONIC DIFF [HEME] Stat Lab 10/26/16 10:15 Ordered COMPREHENSIVE METABOLIC PANEL [CHEM] Stat Lab 10/26/16 10:15 Ordered LACTATE, PLASMA [CHEM] Stat Lab 10/26/16 10:16 Ordered LIPASE [CHEM] Stat Lab 10/26/16 10:[address] W/POSS RFLX CULT [URINALYSIS] Stat Lab 10/26/16 10:15 Uncollected Result Diagrams: 10/31/16 08:30 10/31/16 06:10 - XRAY 1 XRAY Study: Chest, Abdomen Impression: Abnormal (markedly dilated small bowel loops suspicious for mechanical obstrucation or possibly adynamicileus. cannot exclude pneumatosis intestinalis right abdomen. recommend CT scan of the abdomen and pelvis.) - CT/MRI 1 CT Study: Abdomen, Pelvis Impression: Abnormal (marked small bowel dilatation measuring up to 4.7 cm. The degree of small bowel distention is suspicious for mechanical small bowel obstruction although adynamic ileus is not completely excluded. Somewhat decompressed small bowel loops are noted within the upper pelvis but no difinitive transition point. The sigmoid colon appears decompressed and the remainder of the colon appears mildly dilated. Small amount of interloop fluid right lower quadrant. No definitive pneumatosis although there is fecalization of hte small bowel and numberous scattered air foci throughout the colon. right lower lobe atelectasis or consolidation. Hialtal hernia. Normal appendix. distended urinary bladder) - CONSULTS/PCP/HOSPITALIST Notification #1 *Consult/PCP/Hospitalist*: Dr. Reagan Time Discussed: 11:27 Reason/Comments: Dr. Davalos consults with Dr. Reagan about admit of PT Consult Disposition: Admit #2 Consult: Dr. Moncada Time Discussed: 15:35 (Dr. Moncada states send Pt to [facility] ) Reason/Comments: Dr. Davalos consulted with Dr. Moncada about Pt Consult Disposition: other Departure - Departure Date of Disposition Decision: 10/26/16 Time of Disposition Decision: 11:20 DIAGNOSIS: Hyponatremia, Hypotension, SBO (small bowel obstruction) Disposition: ADMITTED INPATIENT 09 Certified Medical Emergency: Emergent Condition: Stable - Critical Care Note This patient required my direct & personal management of CC.: Yes Total Time (mins): 45 Critical Care Statement: This patient required my direct personal management to treat or rule out processes, the absence of which, could potentiallly result in sudden, clinically significant life or limb threatening deterioration. This chart was documented by the indicated scribe, (Emma Henning Scribe) and accurately reflects the services I performed and decisions made by me, Binu Davalos MD, as attested by the provider's signature.
== END 2016-10-31 14:05 | disposition home or self-care (01) ==
LOC: P.ED 10:00 → P.ICU 11:55 → SUATTDRO 11:55 → ICU 16:42 → 3N 10-28 15:55
PROVIDERS: ATTEND Internal Medicine

== ENCOUNTER 2017-01-17 17:36 | Inpatient (IN) ==
[2017-01-17 19:25] LABS: BASO% 0.1 % (0.0-0.8); EOS# 0.05 X1000 (0.0-0.7); EOS% 0.5 % (0.0-10.0); HEMATOCRIT 38.4 % (42.0-52.0); HEMOGLOBIN 14.1 g/dL (14.0-18.0); IMM GRAN# 0.03 X1000 (0.0-0.04); IMM GRAN% 0.3 % (0.0-0.5); LYMPH# 1.25 X1000 (1.2-3.4); LYMPH% 12.3 % (20.5-51.1); MANUAL DIFF NEEDED? NO; MCHC 36.7 g/dL (33-37); MCV 87.3 FL (81-99); MONO# 1.56 X1000 (0.11-0.59); MONO% 15.4 % (1.7-9.3); MPV 9.2 FL (7.4-10.4); NEUT% 71.4 % (42.2-75.2); PLT 320 X1000 (130-400)
[2017-01-17 19:36] LABS: AGAP 15; ALBUMIN 4.5 g/dL (3.5-5.0); ALKALINE PHOSPHATASE 92 U/L (32-122); AMYLASE 89 U/L (20-200); BUN 10 mg/dL (8-22); CALCIUM 9.6 mg/dL (8.8-10.2); CHLORIDE 86 mmol/L (98-107); COSMO 244; GOT 38 U/L (10-34); GPT 16 U/L (10-44); LIPASE 118 U/L (13-60); POTASSIUM 3.6 mmol/L (3.5-5.1); SODIUM 121 mmol/L (136-145); TCO2 21 mmol/L (25-35); TOTAL PROTEIN 7.6 g/dL (6.3-8.3)
--- NOTE | 2017-01-17 22:53 | PROVIDER DOCUMENTATION ---
HPI-Abdominal Pain/GI Problem - General Chief Complaint: Return/Recheck Stated Complaint: RECHECK Time Seen by Provider: 01/17/17 21:31 Allergies/Adverse Reactions: Patient Allergies Allergy/AdvReac Type Severity Reaction Status Date / Time No Known Allergies Allergy Verified 01/17/17 20:26 Home Medications: Home Medication List Medication Instructions Recorded Confirmed Last Taken Type RX: Trazodone HCl 150 mg PO QHS 08/05/14 01/17/17 10/25/16 History RX: Zolpidem [Ambien] 10 mg PO HS 03/23/15 01/17/17 10/25/16 History RX: Quetiapine [Seroquel] 300 mg PO TID 04/14/16 01/17/17 10/25/16 History Hydrocodone/Acetaminophen [[place] 1 each PO BID PRN #10 tablet 01/08/17 01/17/17 Unknown Rx 5-325 Tablet] RX: Divalproex E.r. [Depakote ER] 1 tab PO BID 01/17/17 01/17/17 Unknown History RX: Pantoprazole [Protonix] 1 tab PO DAILY 01/17/17 01/17/17 Unknown History Sucralfate [Carafate] 1 gm PO 4XDAY 01/17/17 01/17/17 Unknown History - History of Present Illness-ABD Nature of Presenting Problems: Mr. Hobson presents with a 4 to 6 week history of abdominal pain. Associated with Nausea and vomiting. States that he has been unable to hold anything down in his stomach. He has one BM a week. He has a PMH of bipolar disorder and ETOH abuse. Denies any blood in the vomitus or blood in stool. States his pain is dull and it does not radiate. It ranges in a band like fashion from the liver to the spleen without radiation to the back or between the scapula. He has a PMH of cerebral aneurysm repair while in college. Denies any previous abdominal surgeries/injuries. Abdominal Pain Onset Location: reports: RUQ, LUQ, epigastric Pain Radiation: reports: no radiation Quality of Pain: reports: dull Severity in ED: reports: mild Onset/Duration: reports: other (4 to 6 weeks per Mr. Hobson) Timing: reports: still present, constant Activities at Onset: reports: none Modifying Factors: improves with: nothing Associated Symptoms: reports: constipation, nausea, vomiting Last BM: unsure Dark Stools Present?: reports: none noticed Rectal Bleeding: reports: none Rectal Pain: reports: none Emesis Description: reports: clear Bruising or Bleeding Gums?: No Similar Symptoms Previously?: Yes Recently seen or treated by another doctor?: No Review of Systems - Adult - REVIEW OF SYSTEMS - ADULT Constitutional: reports: no symptoms reported Eyes: reports: no symptoms reported Ears, Nose, Mouth & Throat: reports: no symptoms reported Cardiovascular: reports: no symptoms reported Respiratory: reports: no symptoms reported Gastrointestinal: reports: no symptoms reported, see HPI, abdominal pain, constipation, nausea, vomiting Genitourinary: reports: no symptoms reported Musculoskeletal: reports: no symptoms reported Integumentary: reports: no symptoms reported Neurological: reports: no symptoms reported Psychiatric: reports: no symptoms reported Endocrine: reports: no symptoms reported Hematologic/Lymphatic: reports: no symptoms reported Allergic/Immunologic: reports: no symptoms reported All Other Systems: Reviewed and Negative Past History - Adult - PAST MEDICAL HISTORY-ADULT Review of Records: reports: Old Records Reviewed, Nursing Assessment Review, Medications Reviewed, Social history reviewed & non-contributory. Major Childhood Illnesses: reports: denies history Cardiovascular: reports: HTN Respiratory: reports: asthma, COPD Gastrointestinal: reports: cancer (colon), GERD Obstetrical/Gynecological: reports: denies history Genitourinary: reports: denies history Musculoskeletal: reports: denies history Neurological: reports: CVA, Seizures/Epilepsy Psychiatric: reports: anxiety, bipolar, depression, psychiatric problems ( explosive personality disorder), ptsd, other (alcoholic) Endocrine/Immune: reports: denies history, Diabetes Other Conditions: reports: denies history - PRIOR SURGERIES/PROCEDURES Surgical/Procedure History: reports: tonsillectomy, other (ruptured esophagus) - PRIOR HOSPITALIZATIONS Prior Hospitalizations: reports: none - IMMUNIZATION STATUS Childhood Immunizations: See Nurse Assessment Flu Vaccine: See Nurse Assessment - FAMILY HISTORY Family History: reviewed, not pertinent - SOCIAL HISTORY Smoking: cigarettes (Spent 3 to 5 minutes counseling on smoking cessation) Alcohol Use Frequency: every day Living Situation: alone Physical Exam-General - CONSTITUTIONAL General Appearance: alert, mild distress - EYES Eyes: PERRL/EOMI, pink conjunctivae - HEAD, EARS, NOSE, MOUTH & THROAT HENMT: normocephalic/atraumatic (dry mucous membranes) - NECK Neck: non-tender, full range of motion - RESPIRATORY Respiratory: chest non-tender, lungs clear - CARDIOVASCULAR Cardiovascular: no edema, no gallop, no murmur - GASTROINTESTINAL (ABDOMEN) Abdominal Exam: non tender, no organomegaly, no pulsatile mass. negative: distended, guarding, rigid, rebound, tenderness, hernia, mass, hepatomegaly, spleenomegaly - LYMPHATIC Lymphatic: no adenopathy - MUSCULOSKELETAL Back Exam: normal inspection, no CVA tenderness Extremity: normal range of motion - SKIN Integumentary: normal color - NEUROLOGIC Neurologic: grossly normal - PSYCHIATRIC Psych/Mental Status: normal mood/affect Progress - PLAN OF CARE/RESULTS Progress/Plan/Lab Results: Vital Signs - 8 hr 01/17/17 17:48 Temperature 98.2 F Pulse Rate 104 H Respiratory Rate 18 Blood Pressure 143/99 O2 Sat by Pulse Oximetry 98 Laboratory Results - last 24 hr 01/17/17 01/17/17 19:05 19:05 WBC 10.16 RBC 4.40 L Hgb 14.1 Hct 38.4 L MCV 87.3 MCH 32.0 H MCHC 36.7 RDW Std Deviation 12.8 Plt Count 320 MPV 9.2 Immature Gran % (Auto) 0.3 Neut % (Auto) 71.4 Lymph % (Auto) 12.3 L [place] % (Auto) 15.4 H Eos % (Auto) 0.5 Baso % (Auto) 0.1 Immature Gran # (Auto) 0.03 Neut # (Auto) 7.26 H Lymph # (Auto) 1.25 [place] # (Auto) 1.56 H Eos # (Auto) 0.05 Baso # (Auto) 0.01 Sodium 121 L Potassium 3.6 Chloride 86 L Carbon Dioxide 21 L Anion Gap 15 BUN 10 Creatinine 0.6 L Estimated GFR/1.73 m2 > 60 BUN/Creatinine Ratio 17 Glucose 120 H Calculated Osmolality 244 Calcium 9.6 Total Bilirubin 0.50 AST 38 H ALT 16 Alkaline Phosphatase 92 Total Protein 7.6 Albumin 4.5 Globulin 3.0 Albumin/Globulin Ratio 1.0 Amylase 89 Lipase 118 H Orders Category Date Time Status NPO Diet 01/17/17 17:[address] ABD/PELVIS W/ IV CONT ONLY [CT] Stat Exams 01/17/17 22:28 Ordered AMYLASE [CHEM] Stat Lab 01/17/17 19:05 Completed CBC WITH ELECTRONIC DIFF [HEME] Stat Lab 01/17/17 19:05 Completed COMPREHENSIVE METABOLIC PANEL [CHEM] Stat Lab 01/17/17 19:05 Completed LIPASE [CHEM] Stat Lab 01/17/17 19:05 Completed 0.9% Sodium Chloride Inj [Ns] 1,000 ml Med 01/17/17 22:14 Active IV 75 mls/hr Result Diagrams: 01/17/17 19:05 01/17/17 19:05 - CT/MRI 1 CT Study: Abdomen (prominent atelectasis--follow up warrented.) Impression: See EMR Report Departure - Departure Date of Disposition Decision: 01/18/17 Time of Disposition Decision: 01:56 DIAGNOSIS: Vomiting, Nausea and vomiting, Constipation, Abdominal pain in male, Hyponatremia Disposition: ADMITTED INPATIENT 09 Certified Medical Emergency: Emergent Condition: Fair Additional Freetext Instructions: Discussed case with Dr. Reagan. Patient will be admitted to [facility] for Hyponatremia. Placed On DT protocol. Morning labs ordered. Close follow up. Referrals and Follow-Ups: None,PCP [Primary Care Provider] - - Critical Care Note This patient required my direct & personal management of CC.: No Attestation - Physician/ COLLEEN Attestation Patient care was provided by Advanced Practice Provider:: No The physician spent face to face time with patient:: Yes Advanced Practice Provider documentation review:: Supervising physician onsite and consulted in the evaluation and care of this patient. The physician did have a face to face encounter with the patient.
[2017-01-17] MEDS: NS 1,000 ML IV SCH (23:08)
[2017-01-18] MEDS ORDERED: ZOFRAN PO PRN (02:00)
[2017-01-18] MEDS ORDERED: ATIVAN IV PRN (02:00)
[2017-01-18] MEDS ORDERED: NS 1,000 ML IV SCH (02:11)
[2017-01-18 03:00] LABS: INR 0.89 (0.86-1.15); PROTIME 12.8 Seconds (12.1-15.5)
[2017-01-18 03:01] LABS: PTT PL 32.2 Seconds (22.6-43.9)
[2017-01-18 05:42] LABS: UR AMPHETAMINES QUAL NONE DETECTED (NONE DETECT); UR BARBITUATES QUAL NONE DETECTED (NONE DETECT); UR BENZODIAZEPIN QUAL NONE DETECTED (NONE DETECT); UR CANNABINOIDS QUAL NONE DETECTED (NONE DETECT); UR COCAINE QUAL NONE DETECTED (NONE DETECT); UR MDMA QUAL NONE DETECTED (NONE DETECT); UR METHADONE QUAL NONE DETECTED (NONE DETECT); UR METHAMPHETAMINE QUAL NONE DETECTED (NONE DETECT); UR OPIATES QUAL NONE DETECTED (NONE DETECT); UR OXYCODONE QUAL NONE DETECTED (NONE DETECT); UR PCP QUAL NONE DETECTED (NONE DETECT); UR TCA QUAL NONE DETECTED (NONE DETECT)
[2017-01-18 06:50] LABS: MANUAL DIFF NEEDED? NO
[2017-01-18] MEDS ORDERED: THIAMINE IV ONE ×2 (07:00→19:02)
[2017-01-18] MEDS ORDERED: FOLIC ACID IV ONE ×2 (07:00→19:02)
[2017-01-18] MEDS ORDERED: MAGNESIUM SULFATE IV ONE (07:00)
[2017-01-18] MEDS ORDERED: M V I IV ONE ×2 (07:00→19:02)
[2017-01-18] MEDS ORDERED: [UNRECOGNIZED DRUG - OTHER] IV ONE (07:00)
[2017-01-18 07:01] LABS: BASO% 0.1 % (0.0-0.8); EOS# 0.06 X1000 (0.0-0.7); EOS% 0.7 % (0.0-10.0); HEMATOCRIT 38.7 % (42.0-52.0); IMM GRAN# 0.02 X1000 (0.0-0.04); IMM GRAN% 0.2 % (0.0-0.5); LYMPH# 1.56 X1000 (1.2-3.4); LYMPH% 17.7 % (20.5-51.1); MCH 31.8 PG (27-31); MCHC 36.2 g/dL (33-37); MONO# 1.63 X1000 (0.11-0.59); MONO% 18.5 % (1.7-9.3); MPV 9.9 FL (7.4-10.4); NEUT% 62.8 % (42.2-75.2); PLT 317 X1000 (130-400)
[2017-01-18 07:41] LABS: AGAP 17; BUN 10 mg/dL (8-22); CALCIUM 9.6 mg/dL (8.8-10.2); CHLORIDE 87 mmol/L (98-107); COSMO 246; POTASSIUM 4.1 mmol/L (3.5-5.1); SODIUM 122 mmol/L (136-145); TCO2 18 mmol/L (25-35)
--- NOTE | 2017-01-18 08:38 | Diag Imaging Result Doc PS360 ---
EXAM: CT ABD/PELVIS W/ IV CONT ONLY HISTORY: rule out pancreatitis TECHNIQUE: Routine CT abdomen and pelvis with contrast as per standard protocol. Oral contrast was not administered as per ED physician request. Dose reduction protocol. COMPARISON: 10/26/2016 FINDINGS: Preliminary interpretation was given by [facility]. There is moderate left lower lobe atelectasis with associated trace left pleural effusion. Follow-up is recommended to document clearing. Underlying mass or endobronchial lesion is not excluded. The pancreas is normal in appearance. No masses or inflammatory change is appreciated. There is no bowel distention, free fluid, or free air. The appendix appears normal. There are small metallic foreign bodies right upper quadrant. Small hypodensities bilateral kidneys which statistically are likely benign. There is a mixed lytic and sclerotic lesion right posterior ilium which is likely related to previous procedure or biopsy. Correlate clinically. There is marked lumbar spondylosis. There is a small hiatal hernia. IMPRESSION: 1.Left lower lobe atelectasis. Follow-up is recommended to exclude an underlying mass or endobronchial lesion. 2.No CT evidence for pancreatitis. 3.No evidence for bowel obstruction. 4. Other nonacute and incidental findings are described above. Electronically signed by Junie Chan 01/18/2017 8:35 AM
[2017-01-18] MEDS ORDERED: NORCO-5 PO PRN (09:31)
[2017-01-18] MEDS: CELEBREX PO SCH ×2 (10:00→20:17)
[2017-01-18] MEDS: DEPAKOTE ER PO SCH ×2 (10:00→20:16)
[2017-01-18] MEDS: NEURONTIN PO SCH ×3 (10:00→20:35)
[2017-01-18] MEDS: PROTONIX PO SCH (10:00)
[2017-01-18] MEDS: NORVASC PO SCH (10:00)
[2017-01-18] MEDS: PRINIVIL PO SCH ×2 (10:00→20:16)
[2017-01-18] MEDS: LOPRESSOR PO SCH ×2 (10:00→20:15)
[2017-01-18] MEDS ORDERED: ZOFRAN ODT PO PRN (11:16)
[2017-01-18] MEDS: NS 1,000 ML IV SCH (11:47)
--- NOTE | 2017-01-18 12:05 | HISTORY AND PHYSICAL ---
PRIMARY CARE PHYSICIAN: Dr. Juarez. CHIEF COMPLAINT: Abdominal pain, nausea and vomiting times 4-6 weeks. HISTORY OF PRESENTING ILLNESS: This is a 61-year-old male, who presents to [facility] ER with complaints of left upper and right upper quadrant and epigastric abdominal pain that he describes as dull, nonradiating. States it has been present for the past 4-6 weeks. States he has nausea constantly and vomiting anytime he tries to eat something. States that he only has a bowel movement every 7-9 days. It is noted in his medical record that he was admitted to [facility] back in October. He had an EGD and a colonoscopy at that time with Dr. Reddy that was normal on both. It is noted though back in July 2015 he had a barium swallow x-ray that showed severe presbyesophagus and achalasia. The patient states that he has gained weight over the past month of around 14 pounds according to him, but according to records in October he weighed 227 and is now down to 218, so he has actually lost some weight. On arrival to the emergency room, he had a blood pressure of 143/99. His laboratory data showed a sodium of 121 with a chloride of 86. His lipase was 118. His serum alcohol level showed none detected. He has a history of some EtOH abuse, but states that it has been 5 months since his last drink. He had a CT of the abdomen and pelvis in the emergency room that showed no CT evidence for pancreatitis, no evidence for bowel obstruction, and was noted to have some left lower lobe atelectasis. Follow up was recommended to exclude an underlying mass or endobronchial lesion. So, he was admitted to the medical unit for further evaluation and treatment. PAST MEDICAL HISTORY: Hypertension, COPD, GERD, a subarachnoid hemorrhage, CVA , seizure, bipolar disorder, PTSD and known EtOH abuse. PAST SURGICAL HISTORY: Tonsillectomy and a ruptured esophagus repair. FAMILY HISTORY: Noncontributory. SOCIAL HISTORY: Currently lives with family. Smokes 1 pack of cigarettes a day and has done so since the age of 14. Denies any alcohol or illicit drug use. ALLERGIES: He has no known drug allergies. HOME MEDICATIONS: 1. Norvasc 10 mg p.o. daily. 2. Celebrex 200 mg p.o. b.i.d. 3. Depakote 250 mg p.o. b.i.d. 4. Gabapentin 800 mg p.o. t.i.d. 5. Home 5 one p.o. b.i.d. p.r.n. 6. Metoprolol 25 mg p.o. b.i.d. 7. Protonix 40 mg 1 p.o. daily. 8. Seroquel 300 mg p.o. t.i.d. 9. Carafate 1 g p.o. 4 times daily. 10. Trazodone 150 mg p.o. at bedtime. 11. Ambien 10 mg p.o. at bedtime. LABORATORY DATA: Showed a white blood cell count of 10.16, hemoglobin 14.1, hematocrit 38.4, platelets 320. PT and INR of 12.8 and 0.89. Sodium 121, potassium 3.6, chloride 86, CO2 21, BUN of 10, creatinine 0.6, glucose 120, magnesium 1.6. AST of 38, ALT 16, alkaline phosphatase 92, amylase of 89, lipase 118. Urine drug screen is negative. Serum alcohol level showed none detected. IMAGING STUDIES: Abdomen x-ray showed mild constipation. Abdomen and pelvic CT showed no CT evidence for pancreatitis, no evidence for bowel obstruction. There was some left lower lobe atelectasis, and follow up is recommended to exclude an underlying mass or endobronchial lesion. REVIEW OF SYSTEMS: He denied any fever, chills, blurred vision, dizziness, chest pain, coughing, shortness of breath. He is positive for upper quadrant left and right abdominal pain, nausea, vomiting, constipation. Denied any diarrhea, burning or hurting with urination. PHYSICAL EXAMINATION: VITAL SIGNS: On arrival, he had a temperature of 98.2 degrees, pulse 104, respirations 18, blood pressure 143/99, satting 98% on room air. GENERAL: This is a 61-year-old male, who is sitting up in the bed and answers questions appropriately. HEENT: Normocephalic and atraumatic. Pupils are equal, round, reactive to light. Extraocular movements are intact. Oropharynx and nares are clear. NECK: Supple. LUNGS: Clear to auscultation bilaterally with equal lung expansion and chest wall movement. HEART: With regular rate and rhythm. No murmurs, rubs, or gallops. ABDOMEN: Soft, nontender, nondistended. Bowel sounds are present x4 quadrants. EXTREMITIES: There is no clubbing, cyanosis or edema. NEUROLOGICAL: The cranial nerves 2-12 appear grossly intact. ASSESSMENT: 1. Abdominal pain, left upper quadrant and right upper quadrant. 2. Nausea and vomiting, intractable. 3. Hyponatremia. 4. Hypertension. 5. Tobacco abuse. PLAN: He was admitted to the medical unit. Placed on telemetry. O2 per protocol. Will hold n.p.o. We are obtaining a PICC line consult as we were unable to maintain a peripheral line. We are doing an upper GI series to rule out any type of esophageal stricture. Will place him on his home medications. Normal saline at 75 mL an hour. Recheck a CBC and a BMP in the a.m. We will give Zofran 4 mg p.o. q. 6 hours p.r.n. We will do that ODT for that. Dictated by LASAHY Martinez for Yuriy Reagan MD cc: LASHAY Martinez MD Jagan Reddy, MD pt seen face to face, examined, chart reviewed, pt has nausea amd emesis, we will pursue GI workup to evaluate for dysphagia, otherwise agree with above plan, may require GI consultation [facility]
[2017-01-18] MEDS ORDERED: NS 250 ML ONE (12:12)
[2017-01-18] MEDS ORDERED: SEROQUEL PO SCH (13:00)
--- NOTE | 2017-01-18 13:02 | Diag Imaging Result Doc PS360 ---
EXAM: GI SERIES WITH BA SWALLOW HISTORY: stricture TECHNIQUE: Single contrast evaluation. Patient has hearing loss difficulty following instructions. Fluoroscopy time 2 minutes 15 seconds. Dose: 4938.7 cG ycm2 COMPARISON: None. FINDINGS: The patient initiated swallowing without difficulty. There are no constricting or obstructing lesions within the esophagus. Esophageal peristalsis was normal. There is a small hiatal hernia. There is mild distal esophageal fold thickening which may indicate esophagitis. No focal abnormality about the stomach is appreciated. There was mild gastroesophageal reflux. There is some initial delay of contrast passage beyond the mid horizontal duodenum but no focal lesion is appreciated. There is no evidence for obstruction. IMPRESSION: 1.No evidence for esophageal stricture. 2.Small hiatal hernia small amount of gastroesophageal reflux. 3.Mild distal esophageal fold thickening may indicate esophagitis. 4.Some initial delay of passage of contrast through the horizontal duodenum with no focal lesion demonstrated and no evidence for obstruction. Electronically signed by Junie Chan 01/18/2017 1:00 PM
--- NOTE | 2017-01-18 14:05 | Diag Imaging Result Doc PS360 ---
EXAM: CHEST-PORTABLE HISTORY: picc line TECHNIQUE: Single view of the chest was performed portably. COMPARISON: None. FINDINGS: A right PICC catheter has been placed with its tip at the caval atrial junction. There is cardiomegaly. There is a hiatal hernia. The pulmonary vasculature is not congested. There is left lower lobe atelectasis consolidation. IMPRESSION: PICC catheter at the caval atrial junction. Cardiomegaly. Left basilar infiltrate. Electronically signed by Junie Chan 01/18/2017 2:02 PM
[2017-01-18] MEDS: CARAFATE PO SCH ×3 (15:11→20:15)
[2017-01-18] MEDS ORDERED: NS IV ONE (19:02)
[2017-01-18] MEDS ORDERED: STERILE WATER INJ. INJ PRN (19:03)
[2017-01-18] MEDS ORDERED: GEODON IM PRN (19:03)
[2017-01-18] MEDS: AMBIEN PO SCH (20:15)
[2017-01-18] MEDS: DESYREL PO SCH (20:17)
[2017-01-18] MEDS: SEROQUEL PO SCH (20:36)
[2017-01-19] MEDS: SEROQUEL PO SCH ×3 (05:17→21:49)
[2017-01-19] MEDS: NEURONTIN PO SCH ×3 (05:17→21:52)
[2017-01-19 06:11] LABS: BASO% 0.3 % (0.0-0.8); EOS# 0.22 X1000 (0.0-0.7); EOS% 3.3 % (0.0-10.0); HEMATOCRIT 37.4 % (42.0-52.0); HEMOGLOBIN 13.2 g/dL (14.0-18.0); IMM GRAN# 0.03 X1000 (0.0-0.04); IMM GRAN% 0.5 % (0.0-0.5); LYMPH# 1.51 X1000 (1.2-3.4); LYMPH% 22.7 % (20.5-51.1); MANUAL DIFF NEEDED? YES; MCH 31.3 PG (27-31); MCHC 35.3 g/dL (33-37); MCV 88.6 FL (81-99); MONO# 1.38 X1000 (0.11-0.59); MONO% 20.8 % (1.7-9.3); MPV 9.5 FL (7.4-10.4); NEUT% 52.4 % (42.2-75.2); PLT 310 X1000 (130-400); RBC 4.22 XMIL (4.7-6.1)
[2017-01-19 06:30] LABS: AGAP 12; ALBUMIN 3.7 g/dL (3.5-5.0); ALKALINE PHOSPHATASE 77 U/L (32-122); BUN 11 mg/dL (8-22); CALCIUM 8.6 mg/dL (8.8-10.2); CHLORIDE 92 mmol/L (98-107); COSMO 252; GOT 43 U/L (10-34); GPT 18 U/L (10-44); POTASSIUM 3.3 mmol/L (3.5-5.1); SODIUM 125 mmol/L (136-145); TCO2 21 mmol/L (25-35); TOTAL PROTEIN 6.2 g/dL (6.3-8.3)
[2017-01-19 06:37] LABS: EOS 4 % (1-10); LYMPHS 30 % (21-51); MONO 17 % (1-9)
--- NOTE | 2017-01-19 08:36 | PROGRESS NOTE ---
DATE: 01/19/2017 SUBJECTIVE: Patient without any new complaints. In fact, stated this morning that he had to put his glasses on so that he could listen to me talk. Seems somewhat confused. OBJECTIVE: Vital Signs: Reviewed. Temperature 97 degrees, pulse 59, respiratory rate 18, BP 101/67. Sat 95% on room air. General: The patient is awake, alert. He is currently in no respiratory distress. He is somewhat confused but this appears to be his baseline. HEENT: Normocephalic, atraumatic, KYRA. Neck: Supple. CV: Regular rate. Chest: Clear. Abdomen: Soft. Extremities: Moves all extremities. No edema. Neurologic: No changes. LABS: CBC normal. Sodium 135, potassium 3.3, creatinine 0.6, AST 43. Amylase and lipase normal. ASSESSMENT: 1. Hyponatremia. Continues to improve. He was on hydrochlorothiazide at home. This certainly could be also contributed by his Depakote and is Desyrel. Given his extreme bipolar and acting out yesterday, we will not change his bipolar medications today. We will continue to follow. Will leave off the hydrochlorothiazide momentarily. We will continue Desyrel tonight. If his sodium does not improve, then we will stop Desyrel tomorrow. At this point, we will also saline lock, as he does not appear to be volume depleted. We will recheck in the a.m. 2. Apparent history of alcohol abuse. We will continue to watch for withdrawal-type symptoms. 3. Hypertension. Blood pressures are better. 4. Chronic tobacco abuse. 5. Questionable left basilar infiltrate. 6. Esophagitis. Continue Prevacid and Carafate. PLAN: As noted, we will continue Desyrel tonight. If his sodium does not improve, we will stop in the a.m. Will continue other medications. CT of the chest is pending. If this shows infiltrate, then we will certainly treat for infection, although patient has no signs or symptoms currently. cc: MD Yuriy Nazario MD
[2017-01-19] MEDS ORDERED: HYDROCHLOROTHIAZIDE PO SCH (09:00)
[2017-01-19] MEDS: CARAFATE PO SCH ×4 (09:01→21:52)
[2017-01-19] MEDS: LOPRESSOR PO SCH ×2 (09:01→21:52)
[2017-01-19] MEDS: PROTONIX PO SCH (09:01)
[2017-01-19] MEDS: THERA M PLUS PO SCH (09:01)
[2017-01-19] MEDS: DEPAKOTE ER PO SCH ×2 (09:01→21:51)
[2017-01-19] MEDS: PRINIVIL PO SCH ×2 (09:01→21:52)
[2017-01-19] MEDS: NORVASC PO SCH (09:01)
[2017-01-19] MEDS: CELEBREX PO SCH ×2 (09:01→21:49)
--- NOTE | 2017-01-19 10:22 | Diag Imaging Result Doc PS360 ---
EXAM: US ABDOMEN-COMPLETE INDICATION: pancreatitis COMPARISON: None. FINDINGS: The gallbladder appears normal with no stones, wall thickening, or pericholecystic fluid. The common bile duct is normal in diameter. Sonographic Flanagan's sign was reported to be negative. The liver is grossly unremarkable. Portal venous flow is hepatopedal. The pancreas is largely obscured by bowel gas. The visualized portion of the pancreas is unremarkable. No peripancreatic fluid collections are appreciated. The aorta and IVC are partially obscured by gas. The visualized portions are unremarkable. The spleen is unremarkable. There is a 2.2 cm hypoechoic focus associated with the left kidney that appears to correspond to a tiny cystic appearing focus at the inferior aspect of the left kidney exhibiting no discernible enhancement on a recent CT dated 01/17/2017. There is no associated Doppler flow. The kidneys are grossly unremarkable, otherwise. IMPRESSION: 1.The pancreas is largely obscured. However, the visualized portion is unremarkable. 2.Other incidental/nonacute findings detailed above. Electronically signed by Jorje Mooney 01/19/2017 10:19 AM
--- NOTE | 2017-01-19 10:55 | Diag Imaging Result Doc PS360 ---
EXAM: CT THORAX W/CONTRAST INDICATION: pneumonia TECHNIQUE: Dose reduction protocol was used. COMPARISON: CT chest dated 01/10/2012 FINDINGS: The moderate atelectasis at the medial aspect of the left lower lobe seen on a recent abdominal CT dated 01/17/2017 is stable. No definite central obstructing lesion can be identified. This atelectasis may be due to mucous plugging in the distal bronchial branches. There is trace patchy scarring and/or subsegmental atelectasis at the right mid and lower lung zone. There is very subtle groundglass opacity at the left lung apex that could indicate mild nonspecific pneumonitis. No other airspace consolidation is appreciated. There is no pleural fluid collection and no pneumothorax. The heart is not enlarged. There are mild coronary artery calcifications. There is no evidence of significant mediastinal or hilar lymphadenopathy. IMPRESSION: 1.Moderate atelectasis at the medial aspect of the left lower lobe with no definite central obstructing mass. Please see above discussion. 2.Very subtle groundglass opacity at the left lung apex that could represent minimal nonspecific pneumonitis. No significant airspace consolidation identified, otherwise. 3.Other incidental/nonacute findings detailed above. Electronically signed by Jorje Mooney 01/19/2017 10:52 AM
[2017-01-19] MEDS: AMBIEN PO SCH (21:50)
[2017-01-19] MEDS: DESYREL PO SCH (21:51)
[2017-01-20] MEDS: SEROQUEL PO SCH ×3 (04:55→21:36)
[2017-01-20] MEDS: NEURONTIN PO SCH ×3 (04:55→21:37)
[2017-01-20 06:10] LABS: HEMATOCRIT 35.5 % (42.0-52.0); HEMOGLOBIN 12.5 g/dL (14.0-18.0); MCH 31.6 PG (27-31); MCHC 35.2 g/dL (33-37); MCV 89.9 FL (81-99); MPV 9.7 FL (7.4-10.4); RBC 3.95 XMIL (4.7-6.1)
[2017-01-20 06:35] LABS: AGAP 11; ALBUMIN 3.7 g/dL (3.5-5.0); ALKALINE PHOSPHATASE 82 U/L (32-122); BUN 13 mg/dL (8-22); CALCIUM 8.9 mg/dL (8.8-10.2); CHLORIDE 90 mmol/L (98-107); COSMO 250; GOT 31 U/L (10-34); GPT 24 U/L (10-44); MAGNESIUM 1.9 mg/dL (1.5-2.7); POTASSIUM 3.7 mmol/L (3.5-5.1); SODIUM 124 mmol/L (136-145); TCO2 24 mmol/L (25-35); TOTAL PROTEIN 5.7 g/dL (6.3-8.3)
[2017-01-20] MEDS: CARAFATE PO SCH ×4 (08:10→21:36)
[2017-01-20] MEDS: PRINIVIL PO SCH ×2 (08:10→21:37)
[2017-01-20] MEDS: CELEBREX PO SCH ×2 (08:10→21:36)
[2017-01-20] MEDS: THERA M PLUS PO SCH (08:10)
[2017-01-20] MEDS: PROTONIX PO SCH (08:10)
[2017-01-20] MEDS: NORVASC PO SCH (08:10)
[2017-01-20] MEDS: DEPAKOTE ER PO SCH ×2 (08:10→21:37)
[2017-01-20] MEDS: LOPRESSOR PO SCH ×2 (08:10→21:36)
[2017-01-20] MEDS: SODIUM CHLORIDE PO SCH ×2 (11:15→21:37)
--- NOTE | 2017-01-20 13:36 | PROGRESS NOTE ---
DATE: 01/20/2017 SUBJECTIVE: Patient without any new complaints, sleeping comfortably. OBJECTIVE: Vital signs: Temperature 97, pulse 58, respiratory rate 18, BP 81/55 to 145/102, saturation 99% on room air. HEENT: Normocephalic. CV: Regular rate. Chest: Clear. Abdomen: Soft. Extremities: Moves all extremities. Neuro: No changes. LABS: CBC normal. CMP with a sodium 124, potassium 3.7, creatinine 0.7. ASSESSMENT: 1. Hyponatremia likely iatrogenic cause. Will hold Desyrel tonight. Will place on sodium tablets. He is not taking his hydrochlorothiazide currently. 2. Hypertension. Blood pressures appear to be somewhat erratic, will have staff recheck his blood pressure as it went from 81/55 to 145/102. Not sure if this is accurate. 3. Left basilar infiltrate. Continue antibiotics and will continue to follow. cc: García Felder MD
[2017-01-20] MEDS: AMBIEN PO SCH (21:36)
[2017-01-21] MEDS: SEROQUEL PO SCH (05:37)
[2017-01-21] MEDS: NEURONTIN PO SCH (05:37)
[2017-01-21 05:55] LABS: HEMATOCRIT 35.2 % (42.0-52.0); HEMOGLOBIN 12.2 g/dL (14.0-18.0); MCH 31.5 PG (27-31); MCHC 34.7 g/dL (33-37); MPV 9.7 FL (7.4-10.4); RBC 3.87 XMIL (4.7-6.1)
--- NOTE | 2017-01-21 06:22 | HISTORY AND PHYSICAL ---
ADDENDUM: PROBLEMS: 1. Patient developed some acute agitation issues. I did examine the patient and discussed the plan [id number] with the nurse practitioner and did a [id number] visit with the patient. He is hyponatremic. Several causes for that include beer potomania and also the fact that he is on hydrochlorothiazide and several psychiatric drugs. We will stop the hydrochlorothiazide and follow clinically. I am going to put him on just normal saline and not D5 because this may worsen his hypo osmolarity. As far as his pancreatitis is concern. 2. We will allow him to eat a little bit. Hydrochlorothiazide can also cause pancreatitis. He has had a CT scan which was unremarkable for pancreatitis and he does have a left lower lobe lesion which probably needs to be followed up with. 3. Dysphagia. He has got pancreatitis but I think that is resolved. We will also get a right upper quadrant just to rule out any biliary disease tomorrow. I have discussed the plan with the nurse practitioner and agree with her above the plan. On examination patient is not complaining of pain, he does seem agitated and disoriented. Apparently he went out of his room and was naked so there is some degree of confusion but he does have significant baseline psychiatric issues which he had been not on his medications until later this afternoon. cc: Yuriy Reagan MD
[2017-01-21 06:26] LABS: AGAP 9; ALBUMIN 3.5 g/dL (3.5-5.0); ALKALINE PHOSPHATASE 79 U/L (32-122); BUN 18 mg/dL (8-22); CALCIUM 9.2 mg/dL (8.8-10.2); CHLORIDE 98 mmol/L (98-107); COSMO 262; GOT 24 U/L (10-34); GPT 23 U/L (10-44); MAGNESIUM 1.9 mg/dL (1.5-2.7); POTASSIUM 4.3 mmol/L (3.5-5.1); SODIUM 130 mmol/L (136-145); TCO2 23 mmol/L (25-35)
[2017-01-21 07:18] VITALS: BP 139/84
--- NOTE | 2017-01-21 08:31 | DISCHARGE SUMMARY ---
ADMISSION DATE: 01/18/2017 DISCHARGE DATE: ADDENDUM: Patient notes that he is feeling fine. He is asking to go home. Still having some right arm numbness and pain but this is chronic. Denies any nausea, vomiting, abdominal pain. Ate breakfast well. PLAN: Patient will continue Prevacid and Carafate for his esophagitis. Will follow up outpatient with his primary care doctor. Will continue a regular diet without avoiding salt. cc: García Felder MD
[2017-01-21] MEDS: SODIUM CHLORIDE PO SCH (09:27)
[2017-01-21] MEDS: THERA M PLUS PO SCH (09:27)
[2017-01-21] MEDS: CELEBREX PO SCH (09:27)
[2017-01-21] MEDS: PROTONIX PO SCH (09:28)
[2017-01-21] MEDS: CARAFATE PO SCH (09:28)
[2017-01-21] MEDS: NORVASC PO SCH (09:28)
[2017-01-21] MEDS: LOPRESSOR PO SCH (09:28)
[2017-01-21] MEDS: PRINIVIL PO SCH (09:28)
[2017-01-21] MEDS: DEPAKOTE ER PO SCH (09:28)
--- NOTE | 2017-01-22 03:51 | DISCHARGE SUMMARY ---
ADMISSION DATE: 01/18/2017 DISCHARGE DATE: 01/21/2017 ADDENDUM: Patient states he is feeling fine. He is having no difficulty. He is ambulating well. He is having some right shoulder pain but notes this is being treated by his primary care. Denies any nausea, vomiting. He is eating well. The patient was discussed to not take his hydrochlorothiazide when he is home, to follow up in 1 week with his primary care to have his labs rechecked as well as to follow up with his right shoulder pain. See full dictation. cc: García Felder MD
== END 2017-01-21 12:15 | disposition home health service (06) ==
LOC: P.ED 17:36 → SUATTDRO 01-18 02:25 → P.MEDSURG 01-18 02:25
PROVIDERS: ADMIT Family Medicine; ATTEND Family Medicine